=== PATIENT | male | born 1975 | race Caucasian/White ===

== ENCOUNTER 2023-07-14 08:43 | Emergency (ER) | payer OTHER, SELFPAY ==
[2023-07-14 08:52] VITALS: BP 142/98; PULSE 97; RESP 20; TEMP 37.3; O2SAT 97
--- NOTE | 2023-07-14 09:08 | ED.EAR ---
HPI - Ear Problem General Chief complaint: Ear Stated complaint: Right Ear and Jaw Pain History of Present Illness HPI Narrative: Patient presents with right ear pain. Patient denies any upper respiratory symptoms denies any drainage from his ear. Patient is not taking anything [id number] for her symptoms. Related Data Allergies Allergy/AdvReac Type Severity Reaction Status Date / Time No Known Allergies Allergy Verified 07/14/23 09:04 Review of Systems Review of Systems: CONSTITUTIONAL: Denies chills, or sweats. Reports fever and generalized body aches EYES: Denies visual changes, redness, or discharge. ENT: Denies otalgia. Reports nasal congestion runny nose and sore throat CARDIOVASCULAR: Denies chest pain, palpitations, or edema. RESPIRATORY: Denies dyspnea. Reports occasional cough GASTROINTESTINAL: Denies abdominal pain, nausea, vomiting, or diarrhea. GENITOURINARY: Denies dysuria or hematuria. SKIN: Denies rash or itching. MUSCULOSKELETAL: Denies back pain, joint pain, or myalgia. Reports generalized body aches NEUROLOGIC: Denies headache, numbness, or weakness. PSYCHIATRIC: Denies anxiety or depression. PMFSH Comments At time of signature, agree with nursing past medical, surgical, social and family history. There is no relevant family history pertinent to the presenting complaint Exam Narrative: The patient is a well-developed, well-nourished in no acute distress. SKIN: Skin is warm and dry without erythema, swelling or exudate. There is good turgor. No tenting. HEAD: Atraumatic. Normocephalic. No temporal or scalp tenderness. EYES: Moist and bright. Sclera and conjunctivae normal. No discharge. PERRLA. Extraocular motions intact. Gross visual acuity intact. EARS: Pinna is normal shape and contour. Clear external auditory canals. TM pearly villeda with good cone of light, no erythema or suppuration. Bilateral cerumen noted no gross hearing deficit. Moderate erythema to right canal right TM dull. Left TM no edema dullness to left TM NOSE: pink, moist mucosa with good air movement. Clear rhinorrhea without nasal flaring. Septum midline. Mouth: moist mucous membranes. THROAT; mild erythema noted to posterior oropharynx with moderate postnasal drainage. Without exudate or ulceration.. Uvula midline. Normal movement of soft palate. NECK: Supple and nontender with full range of motion without discomfort. No meningeal signs. LUNGS: Equal and bilateral breath sounds without wheezes, rales or rhonchi. CHEST: The chest wall is without retractions or use of accessory muscles. HEART: Has a regular rate and rhythm without murmur, gallops, click or rub. ABDOMEN: Soft, nontender with positive active bowel sounds. No rebound tenderness. EXTREMITIES: Without cyanosis, clubbing or edema. Equal 2+ distal pulses and 2 second capillary refill noted. NEUROLOGIC: alert, active, . The patient moves all extremities with normal muscle strength. Normal muscle tone is noted. Normal coordination is noted. NO focal neurological findings noted. Course Course Level of Care: Express Care Visit Vital Signs Vital signs: Vital Signs Temperature 37.3 C 07/14/23 08:52 Pulse Rate 97 07/14/23 08:52 Respiratory Rate 20 07/14/23 08:52 Blood Pressure 142/98 H 07/14/23 08:52 Pulse Oximetry 97 07/14/23 08:52 Oxygen Delivery Room Air 07/14/23 08:52 Temperature 37.3 C 07/14/23 08:52 Pulse Rate 97 07/14/23 08:52 Respiratory Rate 20 07/14/23 08:52 Blood Pressure 142/98 H 07/14/23 08:52 Pulse Oximetry 97 07/14/23 08:52 Oxygen Delivery Room Air 07/14/23 08:52 At time of signature, agree with nursing past medical, surgical, social and family history. There is no relevant family history pertinent to the presenting complaint My blood pressure follow Please YAYA schedule a followup visit with your personal physician for further evaluation and treatment. Including recheck and discussion of your blood press
== END 2023-07-14 09:20 | disposition home or self-care (01) ==
PROVIDERS: Emergency Provider Nurse Practitioner Family
DX: H66.90 Otitis media, unspecified, unspecified ear (principal); H60.90 Unspecified otitis externa, unspecified ear
CPT/HCPCS: 99213; G0463